=== PATIENT | male | born 2000 | race Caucasian/White ===

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

== ENCOUNTER 2018-08-05 06:35 | Day surgery (SDC) | payer OTHER ==
[2018-08-05 07:56] LABS: BASOPHILS # (AUTO) 0.1 K/uL (0.00-0.22); BASOPHILS % (AUTO) 0.6 % (0.0-2.0); EOSINOPHILS # (AUTO) 0.4 K/uL (0-0.4); EOSINOPHILS % (AUTO) 3.3 % (0.0-4.0); HEMATOCRIT 47.4 % (36-52); HEMOGLOBIN 15.8 g/dL (12.0-18.0); LYMPHOCYTES # (AUTO) 3.2 K/uL (2.0-11.5); LYMPHOCYTES % (AUTO) 26.3 % (20.5-51.1); MEAN CORPUSCULAR HEMOGLOBIN 31 pg (27-31); MEAN CORPUSCULAR HGB CONC 33 g/dL (33-37); MEAN CORPUSCULAR VOLUME 91.8 fL (80-94); MONOCYTES # (AUTO) 0.9 K/uL (0.8-1.0); MONOCYTES % (AUTO) 7.9 % (1.7-9.3); NEUTROPHILS # (AUTO) 7.4 K/uL (1.8-7.7); NEUTROPHILS % (AUTO) 61.9 % (42.2-75.2); PLATELET COUNT (AUTO) 263 K/uL (140-450); RED BLOOD CELL COUNT(AUTO) 5.16 MIL/uL (4.20-6.10); RED CELL DISTRIBUTION WIDTH 13.8 % (11.6-13.7)
[2018-08-05 08:34] LABS: PROTHROMBIN TIME 10.3 secs (10.8-13.4)
[2018-08-05] MEDS ORDERED: LIDOCAINE 2% 1000 MG/50 ML VIAL INJ ONE (09:24)
== END 2018-08-05 10:53 | disposition home or self-care (01) ==
LOC: MDS 06:35 → MMU 06:37 → MDS 09:43
PROVIDERS: ATTEND Internal Medicine Gastroenterology
DX: K74.0 Hepatic fibrosis (principal); K75.89 Other specified inflammatory liver diseases; E66.9 Obesity, unspecified; Z98.890 Other specified postprocedural states
CPT/HCPCS: 36415; 47000; 76942; 85025; 85610; 85730; 88307; 88313; J2001; Q0092